=== PATIENT | female | born 1995 | race Caucasian/White ===

== ENCOUNTER 2019-12-06 16:00 | Observation (INO) | payer MEDICAID, OTHER ==
[~2019-12-06] VITALS: Ht 167.6 cm; Wt 77.0 kg
[2019-12-06 16:02] VITALS: BP 121/93
[2019-12-06] MEDS ORDERED: PNV1TABL76 PO (16:06)
[2019-12-06 20:07] LABS: CLARITY URINE CLOUDY (CLEAR); COLOR URINE DK YELLOW (YELLOW); KETONES URINE 1+ (NEGATIVE); LEUKOCYTE ESTERASE URINE 1+ (NEGATIVE); NITRITE URINE NEGATIVE (NEGATIVE); OCCULT BLOOD URINE NEGATIVE (NEGATIVE); PH URINE 7.5 (4.5-8.0); PROTEIN URINE TRACE (NEGATIVE); SPECIFIC GRAVITY URINE 1.019 (1.005-1.030); UROBILINOGEN URINE 0.2 E.U./dL (0.2-1.0)
[2019-12-06] MEDS ORDERED: CEFAZOLIN 2,000 MG in DEXT 5% WATER 100 ML IV NR (20:45)
[2019-12-06] MEDS ORDERED: LACTATED RINGERS 1,000 ML IV SCH (20:45)
== END 2019-12-06 22:45 | disposition home or self-care (01) ==
LOC: ER 16:10 → 8 EST LDRP 19:29
PROVIDERS: ADMIT Obstetrics & Gynecology; ATTEND Obstetrics & Gynecology
DX: O99.343 Other mental disorders complicating pregnancy, third trimester (principal); O26.893 Other specified pregnancy related conditions, third trimester; R10.9 Unspecified abdominal pain; Z3A.34 34 weeks gestation of pregnancy
CPT/HCPCS: 81003; 96365; 99284; G0378; J0690; J7060; 96360; 99281